=== PATIENT | female | born 1960 | race Caucasian/White ===

== ENCOUNTER → 2024-03-20 | Outpatient (CLI) | payer OTHER | LOC: MAMMO 08:18 | DX: Z12.31 Encounter for screening mammogram for malignant neoplasm of breast (principal) ==

== ENCOUNTER 2024-08-10 11:38 | Emergency (ER) | payer OTHER ==
[~2024-08-10] VITALS: Ht 162.6 cm; Wt 90.5 kg
[2024-08-10] MEDS ORDERED: HCTZ 25MG25 MG PO (11:50)
[2024-08-10] MEDS ORDERED: ACETAMINOPHEN-H1 TA2 PO (11:50)
[2024-08-10] MEDS ORDERED: LISINOPRIL20 MG PO (11:50)
[2024-08-10 12:44] VITALS: BP 115/90
== END 2024-08-10 12:40 | disposition home or self-care (01) ==
LOC: ED 11:38
DX: J10.1 Influenza due to other identified influenza virus with other respiratory manifestations (principal)